=== PATIENT | female | born 1985 | race Caucasian/White ===

== ENCOUNTER 2018-03-17 23:36 | Emergency (ER) | payer OTHER ==
[~2018-03-17] VITALS: Ht 154.9 cm; Wt 102.6 kg
[2018-03-18 02:28] VITALS: BP 139/93
== END 2018-03-18 02:28 | disposition home or self-care (01) ==
LOC: ED 23:36
DX: S51.011A Laceration without foreign body of right elbow, initial encounter (principal); S20.111A Abrasion of breast, right breast, initial encounter; M79.7 Fibromyalgia; Z86.2 Personal history of diseases of the blood and blood-forming organs and certain disorders involving the immune mechanism; W54.0XXA Bitten by dog, initial encounter; Y93.89 Activity, other specified; Y92.89 Other specified places as the place of occurrence of the external cause; Y99.8 Other external cause status; I10 Essential (primary) hypertension
CPT/HCPCS: 90715; J1885; J2001

== ENCOUNTER 2018-03-21 06:30 | Emergency (ER) | payer OTHER ==
[~2018-03-21] VITALS: Ht 154.9 cm; Wt 100.5 kg
[2018-03-21 06:51] VITALS: BP 140/85
[2018-03-21 07:31] LABS: PLATELET COUNT 327 x10^3mcL (130-400)
[2018-03-21 07:35] LABS: CALCIUM 8.9 mg/dL (8.5-10.1); CARBON DIOXIDE 25.6 mmol/L (21-32); CHLORIDE SERUM 102 mmol/L (98-107); CREATININE SERUM 0.9 mg/dL (0.6-1.0); GFR1 > 60 mL/min; GLUCOSE SERUM 111 mg/dL (74-106); POTASSIUM SERUM 3.5 mmol/L (3.5-5.1); SODIUM SERUM 137 mmol/L (136-145)
[2018-03-21 08:12] LABS: RED CELL DISTRIBUTION WIDTH 15.9 % (11.5-14.5)
[2018-03-21 09:38] LABS: BAND NEUTROPHIL 0 % (0-10); BASOPHIL 0 % (0-2); MONOCYTE 5 % (0-7); SEGMENTED NEUTROPHILS 79 % (37-75)
[2018-03-21 09:39] LABS: PLATELET MORPHOLOGY PLATELETS NORMAL; ovalocyte/elliptocyte 1+; rbc morphology (normal/abnorm) ABNORMAL (NORMAL)
== END 2018-03-21 08:38 | disposition home or self-care (01) ==
LOC: ED 06:30
PROVIDERS: Emergency Medicine
DX: L03.113 Cellulitis of right upper limb (principal); I10 Essential (primary) hypertension; D64.9 Anemia, unspecified; R73.03 Prediabetes; K58.9 Irritable bowel syndrome, unspecified; W54.0XXD Bitten by dog, subsequent encounter
CPT/HCPCS: J0295; J3490; J7030